=== PATIENT | male | born 1935 | race Caucasian/White ===

== ENCOUNTER → 2017-05-18 | Outpatient (CLI) | payer MEDICARE ==
[~2017-05-18] MED LIST: ACETAMINOPHEN500 MG PO; ALBU90OI INH; ASPI81EC PO; ATACAND HCT PO; CAND32 PO; CANDESARTAN PO; CHOL10002 PO; CLON.3 PO; DOXA4 PO; ENOX40I SC; ENOX80I SC; HYDACE5325 PO; HYDCHL12.5 PO; HYDCHL25 PO; HYDROCHLOROTHIAZIDE PO; MECL12.5 PO; PRAV20; PRAV20 PO; Percocet 5-3251 EACH PO; TAMS.4ER PO; VERA180ER PO; VERA240ER PO; VERA240ERB PO; WARF5 PO; WARF6 PO; Zithromax250 MG PO; [UNRECOGNIZED DRUG - OTHER] PO
== END | disposition home or self-care (01) ==
LOC: LAB SHORT 10:12 → PLD 10:12
DX: L57.0 Actinic keratosis (principal)
CPT/HCPCS: 88305

== ENCOUNTER 2018-02-02 01:10 | Day surgery (SDC) | payer OTHER ==
[~2018-02-02 01:10] MED LIST changes: -ACETAMINOPHEN500 MG PO; -ENOX40I SC; -ENOX80I SC; -Percocet 5-3251 EACH PO
[2018-02-06] MEDS ORDERED: ACETAMINOPHEN500 MG PO (09:27)
[2018-02-06] MEDS ORDERED: ENOX80I SC (09:27)
[2018-02-06] MEDS ORDERED: Percocet 5-3251 EACH PO (09:29)
[2018-02-07] MEDS ORDERED: ENOX40I SC (12:46)
[2018-02-07] MEDS ORDERED: WARF6 PO (12:46)
== END 2018-02-02 16:32 | disposition home or self-care (01) ==
LOC: ATC 01:10
DX: I74.9 Embolism and thrombosis of unspecified artery (principal)
CPT/HCPCS: 96372; J1650

== ENCOUNTER 2018-02-03 07:50 | Day surgery (SDC) | payer OTHER ==
[2018-02-06] MEDS ORDERED: ACETAMINOPHEN500 MG PO (09:27)
[2018-02-06] MEDS ORDERED: ENOX80I SC (09:27)
[2018-02-06] MEDS ORDERED: Percocet 5-3251 EACH PO (09:29)
[2018-02-07] MEDS ORDERED: ENOX40I SC (12:46)
[2018-02-07] MEDS ORDERED: WARF6 PO (12:46)
== END 2018-02-03 22:47 | disposition home or self-care (01) ==
LOC: ATC 07:50
DX: I74.9 Embolism and thrombosis of unspecified artery (principal)
CPT/HCPCS: 96372; J1650

== ENCOUNTER 2019-04-06 07:51 | Day surgery (SDC) | payer OTHER ==
[~2019-04-06 07:51] MED LIST changes: +ACETAMINOPHEN500 MG PO; -CHOL10002 PO; +ENOX40I SC; +ENOX80I SC; +Percocet 5-3251 EACH PO; +VITAMIN D31 ML PO
--- NOTE | 2019-04-06 17:40 | NUR ---
PT S.O. STATES NO CHANGES TO PT HX SINCE BEING IN CLINIC LAST YEAR.
[2019-04-07] MEDS ORDERED: FURO20 PO (07:43)
[2019-04-07] MEDS ORDERED: POTA10T PO (07:43)
[2019-04-07] MEDS ORDERED: TAMS.4ER PO (07:43)
[2019-04-07] MEDS ORDERED: ROPI.25 PO (07:44)
[2019-04-07] MEDS ORDERED: FOLPLEX PO (07:45)
[2019-04-07] MEDS ORDERED: XYZAL5 MG PO (07:45)
== END 2019-04-06 16:47 | disposition home or self-care (01) ==
LOC: ATC 07:51
DX: I82.409 Acute embolism and thrombosis of unspecified deep veins of unspecified lower extremity (principal); I10 Essential (primary) hypertension; F41.9 Anxiety disorder, unspecified; E78.5 Hyperlipidemia, unspecified; M23.91 Unspecified internal derangement of right knee; Z88.5 Allergy status to narcotic agent; Z88.0 Allergy status to penicillin; Z88.7 Allergy status to serum and vaccine; Z79.01 Long term (current) use of anticoagulants; Z79.899 Other long term (current) drug therapy
CPT/HCPCS: 96372; J1650

== ENCOUNTER 2019-04-07 06:52 | Day surgery (SDC) | payer OTHER ==
[2019-04-07] MEDS ORDERED: POTA10T PO (07:43)
[2019-04-07] MEDS ORDERED: TAMS.4ER PO (07:43)
[2019-04-07] MEDS ORDERED: FURO20 PO (07:43)
[2019-04-07] MEDS ORDERED: ROPI.25 PO (07:44)
[2019-04-07] MEDS ORDERED: FOLPLEX PO (07:45)
[2019-04-07] MEDS ORDERED: XYZAL5 MG PO (07:45)
== END 2019-04-07 16:11 | disposition home or self-care (01) ==
LOC: ATC 06:52
DX: I82.409 Acute embolism and thrombosis of unspecified deep veins of unspecified lower extremity (principal); I10 Essential (primary) hypertension; E78.5 Hyperlipidemia, unspecified; F41.9 Anxiety disorder, unspecified; M23.91 Unspecified internal derangement of right knee; H91.90 Unspecified hearing loss, unspecified ear; Z88.0 Allergy status to penicillin; Z79.01 Long term (current) use of anticoagulants; Z88.7 Allergy status to serum and vaccine; Z88.5 Allergy status to narcotic agent; Z79.899 Other long term (current) drug therapy
CPT/HCPCS: 96372; J1650

== ENCOUNTER 2019-04-08 00:04 | Day surgery (SDC) | payer OTHER ==
[~2019-04-08 00:04] MED LIST changes: +FOLPLEX PO; +FURO20 PO; +POTA10T PO; +ROPI.25 PO; +XYZAL5 MG PO
[2019-04-09] MEDS ORDERED: ENOX80I SC (08:34)
[2019-04-09] MEDS ORDERED: CAND16 PO (10:52)
[2019-04-09] MEDS ORDERED: WARF6 PO (10:52)
[2019-04-09] MEDS ORDERED: CLIN300 PO (10:53)
[2019-04-09] MEDS ORDERED: VERA240ER PO (10:53)
[2019-04-09] MEDS ORDERED: FOLPLEX PO (10:54)
== END 2019-04-08 16:24 | disposition home or self-care (01) ==
LOC: ATC 00:04
DX: I82.409 Acute embolism and thrombosis of unspecified deep veins of unspecified lower extremity (principal); I10 Essential (primary) hypertension; E78.5 Hyperlipidemia, unspecified; D64.9 Anemia, unspecified; G25.81 Restless legs syndrome; N40.0 Benign prostatic hyperplasia without lower urinary tract symptoms; F41.9 Anxiety disorder, unspecified; Z79.01 Long term (current) use of anticoagulants; Z79.1 Long term (current) use of non-steroidal anti-inflammatories (NSAID); Z79.899 Other long term (current) drug therapy; Z88.0 Allergy status to penicillin; Z88.5 Allergy status to narcotic agent; Z88.7 Allergy status to serum and vaccine; Z88.1 Allergy status to other antibiotic agents; Z88.8 Allergy status to other drugs, medicaments and biological substances; Z96.652 Presence of left artificial knee joint
CPT/HCPCS: 96372; J1650

== ENCOUNTER 2019-04-09 00:16 | Day surgery (SDC) | payer OTHER ==
[2019-04-09] MEDS ORDERED: ENOX80I SC (08:34)
[2019-04-09] MEDS ORDERED: WARF6 PO (10:52)
[2019-04-09] MEDS ORDERED: CAND16 PO (10:52)
[2019-04-09] MEDS ORDERED: CLIN300 PO (10:53)
[2019-04-09] MEDS ORDERED: VERA240ER PO (10:53)
[2019-04-09] MEDS ORDERED: FOLPLEX PO (10:54)
[2019-04-10] MEDS ORDERED: ENOX80I SC (08:45)
[2019-04-10] MEDS ORDERED: TAMS.4ER PO (08:46)
[2019-04-10] MEDS ORDERED: ACET500 PO (08:47)
== END 2019-04-09 08:29 | disposition home or self-care (01) ==
LOC: ATC 00:16
DX: I82.409 Acute embolism and thrombosis of unspecified deep veins of unspecified lower extremity (principal); I10 Essential (primary) hypertension; E78.5 Hyperlipidemia, unspecified; D64.9 Anemia, unspecified; G25.81 Restless legs syndrome; N40.0 Benign prostatic hyperplasia without lower urinary tract symptoms; F41.9 Anxiety disorder, unspecified; Z79.01 Long term (current) use of anticoagulants; Z79.1 Long term (current) use of non-steroidal anti-inflammatories (NSAID); Z79.899 Other long term (current) drug therapy; Z88.0 Allergy status to penicillin; Z88.5 Allergy status to narcotic agent; Z88.7 Allergy status to serum and vaccine; Z88.1 Allergy status to other antibiotic agents; Z88.8 Allergy status to other drugs, medicaments and biological substances; Z96.652 Presence of left artificial knee joint
CPT/HCPCS: 96372; J1650

== ENCOUNTER 2019-04-10 07:49 | Day surgery (SDC) | payer OTHER ==
[~2019-04-10] VITALS: Ht 172.7 cm; Wt 91.6 kg
[~2019-04-10 07:49] MED LIST changes: +CAND16 PO; +CLIN300 PO
[2019-04-10] MEDS ORDERED: ENOX80I SC (08:45)
[2019-04-10] MEDS ORDERED: TAMS.4ER PO (08:46)
[2019-04-10] MEDS ORDERED: ACET500 PO (08:47)
[2019-04-10 09:29] LABS: International Normalized Ratio 0.98; Prothrombin Time Results 10.5 Sec (9.7-11.5)
--- NOTE | 2019-04-10 10:10 | NUR ---
PT INTO DAY SURGERY VIA W/C. History, Chart, Medications and Allergies reviewed before start of procedure.Lungs clear T/O to Auscultation.
--- NOTE | 2019-04-10 10:40 | NUR ---
LEFT HEARING AIDE LEFT IN PER ANASTHESIA.
--- NOTE | 2019-04-10 18:03 | NUR ---
SHIFT SUMMARY PT EATING AND DRINKING WELL. PT FAMILY HERE. PT ABLE TO WIGGLE TOES BETTER. PT HAS TEDS AND PAS IN PLACE. PT BEEN MED WITHOUT DIFFICULTY. PT FAMILY ASSISTED WITH ADMIT PAPERWORK. PT HAS PSORIASIS.
[2019-04-11 04:05] LABS: BASOPHILS ABSOLUTE AUTO 0.02 K/mm3 (0.00-0.23); BASOPHILS PERCENT AUTO 0 % (0-2); EOSINOPHILS PERCENT AUTO 0 % (0-6); Hematocrit 40.3 % (37.0-53.0); Hemoglobin 13.5 g/dL (13.5-17.5); IMMATURE GRAN ABSOLUTE AUTO 0.12 K/mm3 (0.00-0.10); IMMATURE GRAN PERCENT AUTO 1 % (0-1); LYMPHOCYTES ABSOLUTE AUTO 1.41 K/mm3 (0.84-5.20); LYMPHOCYTES PERCENT AUTO 8 % (21-46); MONOCYTES PERCENT AUTO 6 % (4-13); Mean Corpuscular HGB 30.9 pg (26.0-34.0); Mean Corpuscular HGB Conc 33.5 g/dL (31.5-36.5); Mean Corpuscular Volume 92 fL (80-100); Mean Platelet Volume 10.3 fL (9.1-12.4); NEUTROPHILS ABSOLUTE AUTO 16.01 K/mm3 (1.96-9.15); NEUTROPHILS PERCENT AUTO 85 % (41-73); Platelet Count 249 K/mm3 (150-400); RDW Coefficient Variation 14.4 % (11.7-14.2); RDW Standard Deviation 48.8 fL (35.1-46.3); Red Blood Cell Count 4.37 M/mm3 (4.30-5.90); White Blood Cell Count 18.76 K/mm3 (4.00-11.30)
[2019-04-11 04:26] LABS: Calcium, Blood 8.3 mg/dL (8.5-10.1); Creatinine, Blood 1.26 mg/dL (0.60-1.20); Magnesium, Blood 1.9 mg/dL (1.6-2.4); Potassium, Blood 4.3 mmol/L (3.5-5.5)
--- NOTE | 2019-04-11 05:20 | NUR ---
SHIFT SUMMARY PT POD#1 RIGHT TKA. AAOX4. DISCOMFORT CONTROLLED WITH SCHEDULED TYLENOL + 1 NORCO Q4-5H. NO NAUSEA/EMESIS. DRESSING TO RIGHT KNEE C/D/I. UP TO RESTROOM SBA WITH FWW. GOOD PO INTAKE + OUTPUT. NO ACUTE CHANGES OVER NIGHT. PT RESTING AT THIS TIME WITH CALL LIGHT IN REACH.
--- NOTE | 2019-04-11 07:13 | NUR ---
DR KENDRICK HERE AND PLACED NEW DRESSING.
[2019-04-11] MEDS ORDERED: ENOX40I SC (08:19)
[2019-04-11] MEDS ORDERED: HYDR1TAB94 PO (08:23)
--- NOTE | 2019-04-11 10:34 | NUR ---
PT WORKING WITH THERAPY.
--- NOTE | 2019-04-11 11:41 | NUR ---
Advance directive education conducted. Upon receiving an admit referral for advance directive education, I visited patient. Patient is sitting on a chair and alert. Family are present in the patient's room. I ask about the referral and nobody, including patient had any recollection of the referral. Patient's spouse, Adali stated that they have an advance directive filled out at home but did not know what to do with it from there. I explained the filing process. They demonstrated a comprehension of the information and stated their commitment to follow through.
--- NOTE | 2019-04-11 12:54 | NUR ---
DISCHARGE: PT EATING AND DRINKING, VOIDING, PASSING GAS. PT REPORTS PAIN TOLERABLE ON PO PAIN MEDICATION. PT CLEARED BY THERAPY TO GO HOME. PT/FAMILY REPORTS UNDERSTANDING OF DISCHARGE INSTRUCTIONS, REPORTS HAVING APPR EQUIP AT HOME WELL MEDICATIONS PRESCRIBED BY DR FOR LOVENOX AND PAIN MEDICATION. IV OUT WNL, NO OTHER IV'S IN PLACE. FAMILY REPORTS UNDERSTANDING OF LOVENOX SHOTS, POLAR PAC AND DRESSING CHANGES. PT SENT WITH MULT DRESSING SUPPLIES AND ALCOHOL PADS FOR LOVENOX SHOTS.
== END 2019-04-11 13:11 | disposition home or self-care (01) ==
LOC: ORSCMMR 07:49 → ORD 10:45 → ORSCMMR 14:31 → SURS 14:31 → ORSCMMR 04-11 13:11
PROVIDERS: Orthopaedic Surgery
PROC: 8E0YXBZ Computer Assisted Procedure of Lower Extremity (ICD-10-PCS; principal; 2019-04-10 10:45)
PROC: 0SRC0J9 Replacement of Right Knee Joint with Synthetic Substitute, Cemented, Open Approach (ICD-10-PCS; principal; 2019-04-10 10:45)
DX: M17.11 Unilateral primary osteoarthritis, right knee (principal); I10 Essential (primary) hypertension; I50.9 Heart failure, unspecified; Z86.718 Personal history of other venous thrombosis and embolism; Z79.01 Long term (current) use of anticoagulants; Z79.899 Other long term (current) drug therapy
CPT/HCPCS: 36415; 73560-RT; 80048; 83735; 85025; 85610; 85730; 88300; 97110; 97116; 97162; A9270-GY; C1713; C1776; J0171; J0735; J1100; J1650; J1885; J2250; J2405; J2704; J2795; J3370; J7120

== ENCOUNTER → 2021-01-25 | Outpatient (CLI) | payer MEDICARE ==
[~2021-01-25] MED LIST changes: +ACET500 PO; +HYDR1TAB94 PO
== END ==
LOC: LAB 07:58 → LAB SHORT 07:58
DX: L98.9 Disorder of the skin and subcutaneous tissue, unspecified (principal); D29.0 Benign neoplasm of penis; Z88.0 Allergy status to penicillin; Z88.1 Allergy status to other antibiotic agents; Z88.5 Allergy status to narcotic agent; Z88.8 Allergy status to other drugs, medicaments and biological substances
CPT/HCPCS: 88305; 88312

== ENCOUNTER → 2021-01-25 | Outpatient (CLI) | payer MEDICARE | END | disposition home or self-care (01) | LOC: LAB SHORT 16:36 | DX: L03.314 Cellulitis of groin (principal) | CPT/HCPCS: 87070; 87205 ==

== ENCOUNTER → 2022-03-18 | Outpatient (CLI) | payer MEDICARE ==
[2022-03-18 13:38] LABS: Stool Occult Bld Immuno 1 Positive (NEGATIVE)
== END | disposition home or self-care (01) ==
LOC: LAB SHORT 11:34
PROVIDERS: Family Medicine
DX: K92.1 Melena (principal)
CPT/HCPCS: 82274

== ENCOUNTER → 2022-04-14 | Outpatient (CLI) | payer MEDICARE ==
[2022-04-15 13:43] LABS: Stool Occult Bld Immuno 1 Positive (NEGATIVE)
== END | disposition home or self-care (01) ==
LOC: LAB SHORT 07:21
PROVIDERS: Family Medicine
DX: R10.13 Epigastric pain (principal)
CPT/HCPCS: 82274

== ENCOUNTER → 2022-05-18 | Outpatient (CLI) | payer OTHER ==
[2022-05-18 14:49] LABS: Stool Occult Bld Immuno 1 Negative (NEGATIVE)
== END | disposition home or self-care (01) ==
LOC: LAB SHORT 08:06 → LAB 08:06
PROVIDERS: Physician Assistant Medical
DX: K92.1 Melena (principal)
CPT/HCPCS: 82274